=== PATIENT | male | born 1940 | race Caucasian/White ===

== ENCOUNTER 2018-07-04 10:19 | Observation (INO) | payer MEDICARE, OTHER ==
[2018-07-04] MEDS ORDERED: METOPROLOL TARTRATE 1 MG/ML AMPUL IV ONE (10:33)
[2018-07-04 10:52] LABS: Hematocrit 46.4 % (42.0-52.0); Hemoglobin 15.2 gm/dL (13.5-18.0); Mean Cell Volume 97.9 fl (78-100); Mean Corpuscular Hemoglobin 32.1 pg (27-31); Mean Corpuscular Hgb Conc 32.8 g/dl (32-36); Mean Platelet Volume 9.7 fl (8-11.3); Neutrophil # 10.1 K/mm3 (1.3-6.0); Neutrophil % 80.4 % (42-75.0); Platelet Count 192 K/mm3 (150-450); Red Blood Count 4.74 M/mm3 (4.7-6.0); White Blood Count 12.5 K/mm3 (4.0-10.5)
[2018-07-04 11:10] LABS: Troponin I Less than 0.017 ng/mL (0.00-0.10)
[2018-07-04 11:12] LABS: ALT 17 U/L (19-67); AST 48 U/L (0-48); Albumin * 3.1 gm/dl (3.4-5.0); Alkaline Phosphatase * 97 U/L (50-170); BNP * 1632 pg/mL (5-650); BUN/Creatinine Ratio 17.2 (9.0-21.6); Bilirubin, Total 1.3 mg/dL (0.0-1.1); Blood Urea Nitrogen 20 mg/dL (6-23); Calcium * 8.6 mg/dL (7.9-10.9); Carbon Dioxide 20.3 mmol/L (24-32.6); Chloride 105 mmol/L (97-106); Glucose * 169 mg/dL (70-110); Potassium 3.3 mmol/L (3.4-4.6); Sodium 139 mmol/L (132-142); Total Protein 7.2 gm/dL (6.2-8.2)
[2018-07-04] MEDS ORDERED: FUROSEMIDE 10 MG/ML VIAL IV ONE (11:33)
--- NOTE | 2018-07-04 12:53 | ERNOTE ---
Medical Problem HPI - Narrative Date of Service: 07/04/18 - General Chief Complaint: General Assessment Time Seen by Provider: 07/04/18 10:25 Source: patient, family Exam Limitations: no limitations - Immun/Allergies/Home Medications Immunizations: IMMUNIZATION HX Immunizations Up to Date Yes History of Influenza Vaccine Yes Hx Pneumococcal Vaccination Yes Allergies/Adverse Reactions: Allergies diltiazem HCl [From Cardizem] Allergy (Verified 07/04/18 10:36) Rash Home Medications: HOME MEDICATIONS Furosemide [Lasix] 20 mg PO DAILY 10/01/15 [Last Taken 09/30/15 12:00] dabigatran etexilate 150 mg capsule 150 mg PO BID #180 cap 05/16/18 [Last Taken Unknown] esomeprazole magnesium 20 mg capsule,delayed release 20 mg PO DAILY #90 cap 05/16/18 [Last Taken Unknown] metoprolol tartrate 100 mg tablet 100 mg PO DAILY #90 tab 05/16/18 [Last Taken Unknown] tamsulosin 0.4 mg capsule 0.4 mg PO DAILY #90 cap 05/16/18 [Last Taken Unknown] carbidopa 25 mg-levodopa 100 mg tablet 1 tab PO TID 90 Days #270 tab 06/13/18 [Last Taken Unknown] topiramate 50 mg tablet 50 mg PO BID 06/13/18 [Last Taken Unknown] - History of Present History Narrative: patient presents with increased weakness weight gaiin,sob over last several days Timing: constant, getting worse Severity: moderate Modifying Factors - (Improves): Present: other - nothing Modifying Factors - (Worsens): Present: other - nothing Review of Systems - Review of Systems Constitutional: Present: See HPI, weakness, fatigue, malaise EYE: Present: no symptoms reported ENT: Present: no symptoms reported Respiratory: Present: See HPI, shortness of breath Cardiology: Present: no symptoms reported, palpitations, other - tachycardia Gastrointestinal/Abdominal: Present: no symptoms reported Genitourinary: Present: no symptoms reported Musculoskeletal: Present: no symptoms reported Skin: Present: no symptoms reported Neurological: Present: no symptoms reported Endocrine: Present: no symptoms reported Hematologic/Lymphatic: Present: no symptoms reported Psych: Present: no symptoms reported All Other Systems: All systems neg except as marked Medical History (Last Reviewed 07/04/18 @ 10:26 by Gunner Noland RN) Onychomycosis (Acute) Onset Date: ~09/02/12 Hypertension (Chronic) Onset Date: ~06/26/11 Hallux rigidus (Acute) Onset Date: ~09/02/12 GERD (gastroesophageal reflux disease) (Chronic) Onset Date: ~06/26/11 Edema (Acute) Onset Date: ~06/26/11 Dizziness (Acute) Onset Date: ~06/26/11 Colonic polyp (Acute) Onset Date: ~2008 sigmoid polyp Cholelithiasis (Acute) Onset Date: ~2008 BPH associated with nocturia (Acute) Onset Date: ~07/31/17 Blurred vision (Acute) Onset Date: Unknown Atrial fibrillation (Acute) Onset Date: Unknown Parkinson's disease Onset Date: ~2015 Surgical History: Surgical History (Last Reviewed 07/04/18 @ 10:26 by Gunner Noland RN) H/O colonoscopy Onset Date: ~06/07/01 Tim WNL, 06/20/2009: Nimesh, colonoscopy with biopsy tubural adenoma, 04/13/14: Nimesh, external hemorrhoids recheck 10 years H/O hemorrhoidectomy Onset Date: ~09/21/02 Aaronguonofre x's 2 w/LigaSure H/O umbilical hernia repair Onset Date: ~09/21/02 Nimesh with mesh History of cardioversion Onset Date: ~07/2009 History of cholecystectomy Onset Date: ~06/24/09 History of esophagogastroduodenoscopy (EGD) Onset Date: ~09/22/04 Tim Family History: Family History (Last Reviewed 07/04/18 @ 10:26 by Gunner Noland RN) Sister liver transplant Cholecystitis Father , age 47 of unknown cause Mother , age 60 Cancer AUTO ENGINE MECHANIC Brother , age 56 Mouth cancer Brother , age 66 Blood disorder Social History: Preferred Language Latvian Do you have any muslim or No cultural preference? Smoking Status Former smoker Psych History No pertinent hx Alcohol Use none Drug Use none (Last Updated 07/01/18 @ 00:50 by Donovan Russ DO) No Social History Section defined Physical Exam - Physical Exam General Appearance: Present: mild distress, anxious Head Exam: Present: normal inspection, no evidence of injury Eye Exam: Normal inspection: bilateral, PERRL: bilateral, EOMI: bilateral Ears, Nose, Throat: Present: normal ENT inspection, normal pharynx Neck: Present: normal inspection, nontender Respiratory: Present: respiratory distress, rales, rhonchi Cardiovascular/Chest: Present: tachycardia Peripheral Pulses: N=norm/S=strong/W=weak/B=bound/A=absent: Carotid (R): Normal, Carotid (L): Normal, Radial (R): Normal, Radial (L): Normal, Femoral (R): Normal, Femoral (L): Normal, Dorsalis-pedis (R): Normal, Dorsalis-pedis (L): Normal Gastrointestinal/Abdominal: Present: normal bowel sounds, nontender, nondistended, soft Back Exam: Present: normal inspection, normal range of motion, no CVA tenderness, no vertebral tenderness Extremity Exam: Present: pedal edema Neurological Exam: Present: alert, oriented, normal mood/affect, no motor/sensory deficits Skin Exam: Present: normal color, warm/dry Lymphatic Exam: Present: no adenopathy Progress - Date and Time Seen: Date and Time: 07/04/18 12:51 patient unchanged,discussed case with dr russ, to admit to observation - Results and Orders Patient's Lab Results:: I have reviewed the patient's lab results. - Vital Signs Patient's Vital Signs:: I have reviewed the patient's vital signs. Vital Signs: Vital Signs 07/04/18 10:19 07/04/18 10:29 07/04/18 10:37 Temperature 37.9 C 37.9 C Pulse Rate 135 H 145 H 145 H Respiratory Rate 13 13 Blood Pressure 139/89 145/98 H 145/98 H O2 Sat by Pulse Oximetry 97 97 07/04/18 11:39 Temperature Pulse Rate 94 Respiratory Rate Blood Pressure 111/74 O2 Sat by Pulse Oximetry - EKG EKG: atrial fibrillation - X-Ray X-Ray #1 X-Ray: chest Interpretation: Discd w/ radiologist - increased vascularity - Progress/Reassessment Chief Complaint: General Assessment Progress:: Unchanged - Transfer of Care Expected Disposition: Admit Plan - Plan Plan: to admit to observation Departure Clinical Impression: Atrial fibrillation, Pulmonary edema - Departure Disposition: Still a patient Condition: Poor Referrals: Donovan Russ DO [Primary Care Provider] -
[2018-07-04] MEDS ORDERED: POTASSIUM CHLORIDE 20 MEQ TABLET.SA PO ONE (15:05)
--- NOTE | 2018-07-04 15:12 | HP ---
Chief Complaint - Chief Complaint Date of Service: 07/04/18 Time of Service: 15:12 Chief Complaint: Weakness, shortness of breath, increased weight History of Present Illness: Elie is a 78 yo male with Parkinson's, BPH, and lower extremity edema. His reports that a week ago he had a cold and wasn't feeling well to get out of bed. Since he wasn't getting out of bed he didn't want to take his lasix for fear of having an accident in bed. He has not taken lasix for almost a week. His reports he has become weaker, short of breath and has gained weight. Cough is mostly dry. No fever, chills. Medical History (Last Reviewed 07/04/18 @ 13:22 by Suzan Mohr RN) Onychomycosis (Acute) Onset Date: ~09/02/12 Hypertension (Chronic) Onset Date: ~06/26/11 Hallux rigidus (Acute) Onset Date: ~09/02/12 GERD (gastroesophageal reflux disease) (Chronic) Onset Date: ~06/26/11 Edema (Acute) Onset Date: ~06/26/11 Dizziness (Acute) Onset Date: ~06/26/11 Colonic polyp (Acute) Onset Date: ~2008 sigmoid polyp Cholelithiasis (Acute) Onset Date: ~2008 BPH associated with nocturia (Acute) Onset Date: ~07/31/17 Blurred vision (Acute) Onset Date: Unknown Atrial fibrillation (Acute) Onset Date: Unknown Parkinson's disease Onset Date: ~2015 Surgical History: Surgical History (Last Reviewed 07/04/18 @ 13:22 by Suzan Mohr RN) H/O colonoscopy Onset Date: ~06/07/01 Tim WN, 06/20/2009: Nimesh, colonoscopy with biopsy tubural adenoma, 04/13/14: Nimesh, external hemorrhoids recheck 10 years H/O hemorrhoidectomy Onset Date: ~09/21/02 Aaronguley x's 2 w/LigaSure H/O umbilical hernia repair Onset Date: ~09/21/02 Nimesh with mesh History of cardioversion Onset Date: ~07/2009 History of cholecystectomy Onset Date: ~06/24/09 History of esophagogastroduodenoscopy (EGD) Onset Date: ~09/22/04 [facility] Family History: Family History (Last Reviewed 07/04/18 @ 13:22 by Suzan Mohr RN) Sister liver transplant Cholecystitis Father , age 47 of unknown cause Mother , age 60 Cancer FIELD SALES TRAINER Brother , age 56 Mouth cancer Brother , age 66 Blood disorder Social History: Patient Lives/Resources CC Utilized Occupation Retired Preferred Language Haitian Do you have any yarsanism or Yes: Caodaism cultural preference? Smoking Status Former smoker Have you smoked in the past 12 No months Psych History No pertinent hx Alcohol Use none Drug Use none (Last Updated 07/01/18 @ 00:50 by Donovan Russ DO) No Social History Section defined Review Of Systems (GEN) - Review of Systems Generalized/Overall Review: Present: Weakness, Fatigue. Absent: Chills, Fever EENTM: Present: No Symptoms Reported Respiratory: Present: Cough, Shortness of Breath. Absent: Wheezing Cardiac: Present: Edema. Absent: Chest Pain, Palpitations, Syncope Abdominal: Present: No Symptoms Reported Genitourinary: Present: No Symptoms Reported Musculoskeletal: Present: No Symptoms Reported Neurological: Present: Tremors, Weakness Skin: Present: No Symptoms Reported Endocrine: Present: No Symptoms Reported Immunizations: IMMUNIZATION HX Immunizations Up to Date Yes History of Influenza Vaccine Yes Hx Pneumococcal Vaccination Yes Allergies/Adverse Reactions: Allergies Allergy/AdvReac Type Severity Reaction Status Date / Time diltiazem HCl [From [facility]] Allergy Rash Verified 07/04/18 10:36 Home Medications: HOME MEDICATIONS Furosemide [Lasix] 20 mg PO DAILY 10/01/15 [Last Taken 09/30/15 12:00] dabigatran etexilate 150 mg capsule 150 mg PO BID #180 cap 05/16/18 [Last Taken Unknown] esomeprazole magnesium 20 mg capsule,delayed release 20 mg PO DAILY #90 cap 05/16/18 [Last Taken Unknown] metoprolol tartrate 100 mg tablet 100 mg PO DAILY #90 tab 05/16/18 [Last Taken Unknown] tamsulosin 0.4 mg capsule 0.4 mg PO DAILY #90 cap 05/16/18 [Last Taken Unknown] carbidopa 25 mg-levodopa 100 mg tablet 1 tab PO TID 90 Days #270 tab 06/13/18 [Last Taken Unknown] topiramate 50 mg tablet 50 mg PO BID 06/13/18 [Last Taken Unknown] Exam - Exam Vital Signs: Vital Signs - Last Taken Temp 36.6 C 07/04/18 13:24 Pulse 121 H 07/04/18 13:42 Resp 20 07/04/18 13:24 BP 137/89 07/04/18 13:24 Pulse Ox 96 07/04/18 13:24 Constitutional: Present: Alert, Oriented x3, Cooperative ENT Exam: Present: hearing grossly normal Eye Exam: bilateral eye: normal inspection Respiratory: Present: crackles Cardiovascular/Chest: Present: tachycardia, irregularly irregular, edema Abdomen: Present: Normal bowel sounds, soft, nontender, nondistended, no rebound tenderness Extremity: Present: lower extremity edema - 2+ Skin Exam: Present: normal color, warm/dry, no cyanosis Lymphatic: Present: no adenopathy Eye contact: Present: cooperative, good eye contact, normal speech Diagnostic Studies: Abnormal Lab Results 07/04/18 07/04/18 07/04/18 Range/Units 10:45 10:45 10:45 WBC 12.5 H (4.0-10.5) K/mm3 MCH 32.1 H (27-31) pg Immature Gran % (Auto) 1.30 H (0.001-0.429) % Immature Gran # (Auto) 0.16 H (0.000-0.0310) K/mm3 Neutrophils % 80.4 H (42-75.0) % Lymphocytes % 10.1 L (20-51) % Neutrophils # 10.1 H (1.3-6.0) K/mm3 Lymphocytes # 1.27 L (1.5-3.5) k/mm3 pCO2 26.2 L (35.0-48.0) mmHg HCO3 17.3 L (21.0-28.0) mmol/L Total CO2 18.1 L (19.0-24.0) mmol/L Base Excess -5.0 L (-2.0-3.0) mmol/L Potassium 3.3 L (3.4-4.6) mmol/L Carbon Dioxide 20.3 L (24-32.6) mmol/L Anion Gap 17.0 H (6.8-13.8) mmol/L Random Glucose 169 H (70-110) mg/dL Total Bilirubin 1.3 H (0.0-1.1) mg/dL ALT 17 L (19-67) U/L B-Natriuretic Peptide 1632 H (5-650) pg/mL Albumin 3.1 L (3.4-5.0) gm/dl Laboratory Results WBC 12.5 K/mm3 (4.0-10.5) H 07/04/18 10:45 RBC 4.74 M/mm3 (4.7-6.0) 07/04/18 10:45 Hgb 15.2 gm/dL (13.5-18.0) 07/04/18 10:45 Hct 46.4 % (42.0-52.0) 07/04/18 10:45 MCV 97.9 fl (78-100) 07/04/18 10:45 MCH 32.1 pg (27-31) H 07/04/18 10:45 MCHC 32.8 g/dl (32-36) 07/04/18 10:45 RDW 13.0 % (11.5-14.0) 07/04/18 10:45 Plt Count 192 K/mm3 (150-450) 07/04/18 10:45 MPV 9.7 fl (8-11.3) 07/04/18 10:45 Immature Gran % (Auto) 1.30 % (0.001-0.429) H 07/04/18 10:45 Immature Gran # (Auto) 0.16 K/mm3 (0.000-0.0310) H 07/04/18 10:45 Neutrophils % 80.4 % (42-75.0) H 07/04/18 10:45 Lymphocytes % 10.1 % (20-51) L 07/04/18 10:45 Monocytes % 7.7 % (0.0-9) 07/04/18 10:45 Eosinophils % 0.2 % (0.0-3.0) 07/04/18 10:45 Basophils % 0.3 % (0.0-1.0) 07/04/18 10:45 Nucleated RBC % 0.0 k/mm3 (0-1) 07/04/18 10:45 Neutrophils # 10.1 K/mm3 (1.3-6.0) H 07/04/18 10:45 Lymphocytes # 1.27 k/mm3 (1.5-3.5) L 07/04/18 10:45 Monocytes # 1.0 k/mm3 (0.0-1.0) 07/04/18 10:45 Eosinophils # 0.0 k/mm3 (0.0-0.7) 07/04/18 10:45 Absolute Basophils 0.0 k/mm3 (0.0-0.1) 07/04/18 10:45 pCO2 26.2 mmHg (35.0-48.0) L 07/04/18 10:45 pO2 91.2 mmHg (83.0-108.0) 07/04/18 10:45 HCO3 17.3 mmol/L (21.0-28.0) L 07/04/18 10:45 Total CO2 18.1 mmol/L (19.0-24.0) L 07/04/18 10:45 Base Excess -5.0 mmol/L (-2.0-3.0) L 07/04/18 10:45 ABG pH 7.44 (7.35-7.45) 07/04/18 10:45 ABG O2 Sat (Measured) 97.4 % (94.0-98.0) 07/04/18 10:45 Sodium 139 mmol/L (132-142) 07/04/18 10:45 Plasma Sodium 140 mmol/L (130-142) 07/04/18 10:45 Potassium 3.3 mmol/L (3.4-4.6) L 07/04/18 10:45 Chloride 105 mmol/L (97-106) 07/04/18 10:45 Carbon Dioxide 20.3 mmol/L (24-32.6) L 07/04/18 10:45 Anion Gap 17.0 mmol/L (6.8-13.8) H 07/04/18 10:45 BUN 20 mg/dL (6-23) 07/04/18 10:45 Creatinine 1.16 mg/dL (0.4-1.4) 07/04/18 10:45 Est GFR (Non-Af Amer) 65 mL/min (60-130) 07/04/18 10:45 BUN/Creatinine Ratio 17.2 (9.0-21.6) 07/04/18 10:45 Random Glucose 169 mg/dL (70-110) H 07/04/18 10:45 Calcium 8.6 mg/dL (7.9-10.9) 07/04/18 10:45 Calcium Adj for Albumin 9.0 mg/dL (8.4-10.2) 07/04/18 10:45 Total Bilirubin 1.3 mg/dL (0.0-1.1) H 07/04/18 10:45 AST 48 U/L (0-48) 07/04/18 10:45 ALT 17 U/L (19-67) L 07/04/18 10:45 Alkaline Phosphatase 97 U/L (50-170) 07/04/18 10:45 Troponin I Less than 0.017 ng/mL (0.00-0.10) 07/04/18 10:45 B-Natriuretic Peptide 1632 pg/mL (5-650) H 07/04/18 10:45 Total Protein 7.2 gm/dL (6.2-8.2) 07/04/18 10:45 Albumin 3.1 gm/dl (3.4-5.0) L 07/04/18 10:45 Assessment/Plan - Narrative Narrative: Elie is a 78 yo male with shortness of breath secondary to pulmonary vascular congestion. Secondary to not taking his lasix. Will diurese and replace potassium as needed. He has significant weakness. Will consult PT. Will give low salt diet. He has no hypoxia, will monitor respiratory needs. At this time will admit to observation for diuresis. - Assessment/Plan (1) Pulmonary edema Problem: Acute Qualifiers: Chronicity: acute Qualified Code(s): J81.0 - Acute pulmonary edema (2) Weakness Problem: Acute (3) Parkinsons Problem: Chronic (4) BPH associated with nocturia Problem: Chronic (5) Atrial fibrillation Problem: Chronic Qualifiers: Atrial fibrillation type: chronic Qualified Code(s): I48.2 - Chronic atrial fibrillation
[2018-07-04] MEDS: METOPROLOL TARTRATE 100 MG TABLET PO SCH (15:58)
[2018-07-04] MEDS: CARBIDOPA/LEVODOPA 25/100 1 TAB TABLET PO SCH (16:04)
[2018-07-04] MEDS: TAMSULOSIN HCL 0.4 MG CAP.SR.24H PO SCH (19:29)
[2018-07-04] MEDS: FUROSEMIDE 10 MG/ML VIAL IV SCH (22:23)
[2018-07-04] MEDS: DABIGATRAN ETEXILATE MESYLATE 150 MG CAPSULE PO SCH (22:23)
[2018-07-05] MEDS: PANTOPRAZOLE SODIUM 20 MG TABLET.DR PO SCH (06:40)
[2018-07-05] MEDS: CARBIDOPA/LEVODOPA 25/100 1 TAB TABLET PO SCH ×3 (08:40→16:16)
[2018-07-05] MEDS: METOPROLOL TARTRATE 100 MG TABLET PO SCH (08:40)
[2018-07-05] MEDS: DABIGATRAN ETEXILATE MESYLATE 150 MG CAPSULE PO SCH ×2 (08:40→22:15)
[2018-07-05] MEDS: FUROSEMIDE 10 MG/ML VIAL IV SCH (08:46)
[2018-07-05 12:19] LABS: Hematocrit 47.8 % (42.0-52.0); Hemoglobin 15.7 gm/dL (13.5-18.0); Mean Cell Volume 99.2 fl (78-100); Mean Corpuscular Hemoglobin 32.6 pg (27-31); Mean Corpuscular Hgb Conc 32.8 g/dl (32-36); Mean Platelet Volume 9.7 fl (8-11.3); Neutrophil # 8.2 K/mm3 (1.3-6.0); Neutrophil % 76.7 % (42-75.0); Platelet Count 225 K/mm3 (150-450); Red Blood Count 4.82 M/mm3 (4.7-6.0); Red Cell Distribution Width 13.2 % (11.5-14.0); White Blood Count 10.7 K/mm3 (4.0-10.5)
[2018-07-05 12:32] LABS: Albumin * 3.3 gm/dl (3.4-5.0); Anion Gap 14.3 mmol/L (6.8-13.8); BUN/Creatinine Ratio 17.3 (9.0-21.6); Bilirubin, Total 1.2 mg/dL (0.0-1.1); Ca. Corrected For Albumin 9.2 mg/dL (8.4-10.2); Carbon Dioxide 22.2 mmol/L (24-32.6); Potassium 3.5 mmol/L (3.4-4.6); Total Protein 7.9 gm/dL (6.2-8.2)
[2018-07-05] MEDS: TAMSULOSIN HCL 0.4 MG CAP.SR.24H PO SCH (22:15)
[2018-07-06] MEDS: CARBIDOPA/LEVODOPA 25/100 1 TAB TABLET PO SCH (08:02)
[2018-07-06] MEDS: METOPROLOL TARTRATE 100 MG TABLET PO SCH (08:02)
[2018-07-06] MEDS: PANTOPRAZOLE SODIUM 20 MG TABLET.DR PO SCH (08:02)
[2018-07-06] MEDS: DABIGATRAN ETEXILATE MESYLATE 150 MG CAPSULE PO SCH (08:02)
--- NOTE | 2018-07-06 08:53 | PN ---
Subjective - Date and Time Seen Date: 07/05/18 Time: 16:00 Subjective Narrative: Elie continues to be too weak for home discharge. Evaluated by therapy who believe he needs additional rehabilitation. Has diuresed with lasix. Slight bump in creatinine today. No fever, chills, nausea, or vomiting. Objective - Vitals Vitals: Last Vital Signs Selected Entries 07/05/18 14:24 Temperature 36.7 C Pulse Rate 83 Respiratory Rate 20 Blood Pressure 96/72 O2 Sat by Pulse Oximetry 93 Oxygen Delivery Method Room Air - Abnormal Lab Findings Abnormal Lab Findings: Abnormal Lab Results 07/05/18 07/05/18 Range/Units 12:13 12:13 WBC 10.7 H (4.0-10.5) K/mm3 MCH 32.6 H (27-31) pg Immature Gran # (Auto) 0.04 H (0.000-0.0310) K/mm3 Neutrophils % 76.7 H (42-75.0) % Lymphocytes % 10.6 L (20-51) % Monocytes % 10.9 H (0.0-9) % Neutrophils # 8.2 H (1.3-6.0) K/mm3 Lymphocytes # 1.14 L (1.5-3.5) k/mm3 Monocytes # 1.2 H (0.0-1.0) k/mm3 Carbon Dioxide 22.2 L (24-32.6) mmol/L Anion Gap 14.3 H (6.8-13.8) mmol/L BUN 26 H (6-23) mg/dL Creatinine 1.50 H (0.4-1.4) mg/dL Est GFR (Non-Af Amer) 48 L D (60-130) mL/min Random Glucose 137 H (70-110) mg/dL Total Bilirubin 1.2 H (0.0-1.1) mg/dL ALT 6 L (19-67) U/L Albumin 3.3 L (3.4-5.0) gm/dl - Exam Constitutional: Present: Alert, Oriented x3, Cooperative, No distress Respiratory: Present: lungs clear, normal breath sounds, no respiratory distress Cardiovascular/Chest: Present: irregularly irregular, edema - 2+ Abdomen: Present: soft, nontender, nondistended Skin Exam: Present: normal color, warm/dry, no cyanosis Assessment/Plan Plan Narrative: Medically stable, however not strong enough for care at home. 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 Slight bump in creatinine today, adequately diuresed. - Problems/Diagnosis (1) Pulmonary edema Problem: Acute Qualifiers: Chronicity: acute Qualified Code(s): J81.0 - Acute pulmonary edema (2) Weakness Problem: Acute (3) Parkinsons Problem: Chronic (4) BPH associated with nocturia Problem: Chronic (5) Atrial fibrillation Problem: Chronic Qualifiers: Atrial fibrillation type: chronic Qualified Code(s): I48.2 - Chronic atrial fibrillation
--- NOTE | 2018-07-06 11:46 | DS ---
(1) Pulmonary edema Problem: Acute Qualifiers: Chronicity: acute Qualified Code(s): J81.0 - Acute pulmonary edema (2) Weakness Problem: Acute (3) Parkinsons Problem: Chronic (4) BPH associated with nocturia Problem: Chronic (5) Atrial fibrillation Problem: Chronic Qualifiers: Atrial fibrillation type: chronic Qualified Code(s): I48.2 - Chronic atrial fibrillation Description of Stay: Elie is a 78 yo male that was admitted to observation due to generalized weakness and shortness of breath. This was thought to be related to a combination of progressive decline of parkinson's, recent cold, and recently not taking his lasix causing hypervolumia. She had no hypoxia. He was diuresed with IV lasix until he had a slight bump in creatinine. He was evaluated by PT who recommended half-way therapy. Patient and family felt he was not strong enough to be at home and we looked into correction with therapies. He was accepted at [facility] and I will follow him there. He will have PT and OT. Procedures Performed: none Results and Findings: Pending Mircobiology Results 07/04/18 11:16 Blood Blood Culture - Preliminary NO GROWTH AFTER 48 HOURS 07/04/18 10:45 Blood Blood Culture - Preliminary NO GROWTH AFTER 48 HOURS Lab Pending Results 07/04/18 10:45: WBC 12.5 H, RBC 4.74, Hgb 15.2, Hct 46.4, MCV 97.9, MCH 32.1 H, MCHC 32.8, RDW 13.0, Plt Count 192, MPV 9.7, Immature Gran % (Auto) 1.30 H, Immature Gran # (Auto) 0.16 H, Neutrophils % 80.4 H, Lymphocytes % 10.1 L, Monocytes % 7.7, Eosinophils % 0.2, Basophils % 0.3, Nucleated RBC % 0.0, Neutrophils # 10.1 H, Lymphocytes # 1.27 L, Monocytes # 1.0, Eosinophils # 0.0, Absolute Basophils 0.0 07/04/18 10:45: pCO2 26.2 L, pO2 91.2, HCO3 17.3 L, Total CO2 18.1 L, Base Excess -5.0 L, ABG pH 7.44, ABG O2 Sat (Measured) 97.4 07/04/18 10:45: Sodium 139, Plasma Sodium 140, Potassium 3.3 L, Chloride 105, Carbon Dioxide 20.3 L, Anion Gap 17.0 H, BUN 20, Creatinine 1.16, Est GFR (Non- Af Amer) 65, BUN/Creatinine Ratio 17.2, Random Glucose 169 H, Calcium 8.6, Calcium Adj for Albumin 9.0, Total Bilirubin 1.3 H, AST 48, ALT 17 L, Alkaline Phosphatase 97, Troponin I Less than 0.017, B-Natriuretic Peptide 1632 H, Total Protein 7.2, Albumin 3.1 L 07/05/18 12:13: WBC 10.7 H, RBC 4.82, Hgb 15.7, Hct 47.8, MCV 99.2, MCH 32.6 H, MCHC 32.8, RDW 13.2, Plt Count 225, MPV 9.7, Immature Gran % (Auto) 0.40, Immature Gran # (Auto) 0.04 H, Neutrophils % 76.7 H, Lymphocytes % 10.6 L, Monocytes % 10.9 H, Eosinophils % 0.7, Basophils % 0.7, Nucleated RBC % 0.0, Neutrophils # 8.2 H, Lymphocytes # 1.14 L, Monocytes # 1.2 H, Eosinophils # 0.1, Absolute Basophils 0.1 07/05/18 12:13: Sodium 135, Plasma Sodium 136, Potassium 3.5, Chloride 102, Carbon Dioxide 22.2 L, Anion Gap 14.3 H, BUN 26 H, Creatinine 1.50 H, Est GFR (Non-Af Amer) 48 L D, BUN/Creatinine Ratio 17.3, Random Glucose 137 H, Calcium 9.0, Calcium Adj for Albumin 9.2, Total Bilirubin 1.2 H, AST 38, ALT 6 L, Alkaline Phosphatase 103, Total Protein 7.9, Albumin 3.3 L Discharge Location: [facility] Disposition: Intermediate Care Facility ICF Condition: Fair Level of Care: ICF Discharge Activity: Activity as tolerated Discharge Diet: Low salt Custodial Therapy: Physicial Therapy, Occupation Therapy Referrals: Donovan Russ DO [Primary Care Provider] - (To follow at [facility] comanaged with [employer].) Problem Oriented Discharge Instructions to Patient/Family: Parkinson Disease, [id number] Additional Patient Instructions (free text): [facility] ICF with physical and occupational therapy to evaluate and treat. Prescriptions (Any new or edited meds): Metoprolol Tartrate [Lopressor] 100 mg PO BID #60 tablet Complete Home Medications List: Complete Home Medication List: Furosemide [Lasix] 20 mg PO DAILY 10/01/15 dabigatran etexilate 150 mg capsule 150 mg PO BID #180 cap 05/16/18 carbidopa 25 mg-levodopa 100 mg tablet 1 tab PO TID 90 Days #270 tab 06/13/18 Metoprolol Tartrate [Lopressor] 100 mg PO BID #60 tablet 07/06/18
[2018-07-06] MEDS ORDERED: METOPROLOL TARTRATE 100 MG TABLET PO SCH (21:00)
[2018-07-07 14:38] VITALS: BP 116/74
== END 2018-07-06 13:20 ==
LOC: MS 10:19 → ER 10:19 → MS 13:15
PROVIDERS: ADMIT Family Medicine; ATTEND Family Medicine
DX: R00.0 Tachycardia, unspecified
CPT/HCPCS: 36415; 36600; 71010; 71045; 80053; 82803; 83519; 83880; 84484; 85025; 87040; 87086; 93005; 94760; 96374; 96375; 97110; 97161; 97530; 99285; G0378